=== PATIENT | female | born 1985 | race Caucasian/White ===

== ENCOUNTER 2021-02-15 15:39 | Emergency (ER) | payer OTHER ==
[~2021-02-15] VITALS: Ht 157.5 cm; Wt 113.4 kg
[~2021-02-15 15:39] MED LIST: METH25VI60; REMICADE
[2021-02-15 15:40] VITALS: BP_SYST 109
--- NOTE | 2021-02-15 16:30 | NUR ---
BROUGHT BACK TO BED #2 AND REPORT GIVEN TO HORACIO
--- NOTE | 2021-02-15 16:38 | NUR ---
BROUGHT BACK TO BED #2 AND REPORT GIVEN TO HORACIO
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
--- NOTE | 2021-02-15 16:52 | NUR ---
ER at bedside examining patient.
[2021-02-15] MEDS ORDERED: OXYCODONE/ACETAMINOPHEN *10*mg/325 mg TABLET PO ONE (17:15)
[2021-02-15] MEDS ORDERED: predniSONE 20 MG TABLET PO ONE (17:15)
[2021-02-15] MEDS ORDERED: methocarbamoL 500 MG TABLET PO ONE (17:15)
--- NOTE | 2021-02-15 17:31 | NUR ---
medicated the pt per md order
--- NOTE | 2021-02-15 18:12 | NUR ---
post void residual is 31ml
[2021-02-15] MEDS ORDERED: PRED20TA PO (18:46)
[2021-02-15] MEDS ORDERED: METH-634 PO (18:46)
[2021-02-15 19:11] VITALS: BP_SYST 109
--- NOTE | 2021-02-15 19:12 | NUR ---
Patient given written and verbal discharge instructions and verbalizes understanding. ER MD discussed with patient the results and treatment provided. Patient in stable condition. ID arm band removed. Rx of robaxin and prednisone given. Patient educated on pain management and to follow up with PMD. Pain Scale 0/10. Opportunity for questions provided and answered. Medication side effect fact sheet provided.
== END 2021-02-15 19:11 | disposition home or self-care (01) ==
LOC: SED 15:39
DX: S39.012A Strain of muscle, fascia and tendon of lower back, initial encounter (principal); Z88.8 Allergy status to other drugs, medicaments and biological substances; Z79.899 Other long term (current) drug therapy; X50.0XXA Overexertion from strenuous movement or load, initial encounter; Y93.89 Activity, other specified; Y92.89 Other specified places as the place of occurrence of the external cause; Y99.8 Other external cause status
CPT/HCPCS: 72100; 81002; 81025; 99284; J7512

== ENCOUNTER 2021-02-16 01:16 | Emergency (ER) | payer OTHER ==
[~2021-02-16] VITALS: Ht 157.5 cm; Wt 113.4 kg
[~2021-02-16 01:16] MED LIST changes: +METH-634 PO; +PRED20TA PO
[2021-02-16 03:00] VITALS: BP_SYST 120
--- NOTE | 2021-02-16 03:56 | NUR ---
Patient came in to the emergency room with history of chronic low back pain status post recent lumbar surgery 1 month ago who is presently followed by pain management presents on a second visit in 24 hours complaining of acute exacerbation of her chronic pain. 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 No other remarkable symptoms noted.
--- NOTE | 2021-02-16 03:56 | NUR ---
Patient to ER [facility].
--- NOTE | 2021-02-16 04:07 | NUR ---
MARCIA Maynard examining patient.
[2021-02-16] MEDS ORDERED: OXYCODONE/ACETAMINOPHEN *10*mg/325 mg TABLET PO ONE (04:15)
[2021-02-16 04:44] VITALS: BP_SYST 122
--- NOTE | 2021-02-16 04:44 | NUR ---
Patient given written and verbal discharge instructions and verbalizes understanding. ER MD discussed with patient the results and treatment provided. Patient in stable condition. ID arm band removed. Rx of Robaxin and prednisone 20 mg given. Patient educated on pain management and to follow up with PMD. Pain Scale 3/10. Opportunity for questions provided and answered.
== END 2021-02-16 04:44 | disposition home or self-care (01) ==
LOC: SED 01:16
DX: G89.29 Other chronic pain (principal); M54.5 Low back pain; F31.9 Bipolar disorder, unspecified; F41.9 Anxiety disorder, unspecified; Z79.899 Other long term (current) drug therapy; Z88.8 Allergy status to other drugs, medicaments and biological substances
CPT/HCPCS: 99283